=== PATIENT | female | born 1980 | race African-American/Black ===

== ENCOUNTER 2018-03-19 08:15 | Emergency (ER) | payer OTHER ==
[2018-03-19] MEDS ORDERED: DEXAMETHASONE 4 MG/ML VIAL ONE (09:04)
--- NOTE | 2018-03-19 09:23 | EDPHYS ---
Physician Documentation [facility] Name: Doretha Sandoval Age: 37 yrs Sex: Female : 1980 Arrival Date: 03/19/2018 Time: 08:17 Bed 13 Private MD: None, None ED Physician Mike Angel HPI: 03/19 08:51 This 37 yrs old Black Female presents to ER via Ambulatory with complaints of Sore rn Throat. 08:51 The patient presents with sore throat. The patient describes throat pain as burning, rn raw. Onset: The symptoms/episode began/occurred 3 day(s) ago. Severity of symptoms: At their worst the symptoms were moderate, in the emergency department the symptoms are unchanged. Associated signs and symptoms: Pertinent positives: flu-like symptoms, Sore throat. The patient has not experienced similar symptoms in the past. Reports sore throat for 3 days, no cough/congestion/runny nose, + muscle aches and fatigue.. 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 - Social history:: Smoking status: Patient/guardian denies using tobacco. - Ebola Screening: : Patient denies exposure to infectious person Patient denies travel to an Ebola-affected area in the 21 days before illness onset. - Family history:: not pertinent. - Hospitalizations: : No recent hospitalization is reported. ROS: 08:51 Constitutional: Negative for fever, chills, and weight loss, Eyes: Negative for injury, rn pain, redness, and discharge, ENT: + sore throat Neck: Negative for injury, pain, and swelling, Cardiovascular: Negative for chest pain, palpitations, and edema, Respiratory: Negative for shortness of breath, cough, wheezing, and pleuritic chest pain, Abdomen/GI: Negative for abdominal pain, nausea, vomiting, diarrhea, and constipation, MS/Extremity: Negative for injury and deformity, Skin: Negative for injury, rash, and discoloration, Neuro: Negative for headache, weakness, numbness, tingling, and seizure. Exam: 08:51 Constitutional: This is a well developed, well nourished patient who is awake, alert, rn and in no acute distress. Head/Face: Normocephalic, atraumatic. Eyes: Pupils equal round and reactive to light, extra-ocular motions intact. Lids and lashes normal. Conjunctiva and sclera are non-icteric and not injected. Cornea within normal limits. Periorbital areas with no swelling, redness, or edema. ENT: no stridor, + tonsillar hypertrophy with exudate and erythema, MMM Neck: + tender cervical LAD Neuro: Awake and alert, GCS 15, oriented to person, place, time, and situation. Cranial nerves II-XII grossly intact. Motor strength 5/5 in all extremities. Sensory grossly intact. Cerebellar exam normal. Normal gait. Vital Signs: 08:42 BP 107 / 79; Pulse 94; Resp 16; Temp 97.0(TE); Pulse Ox 99% on R/A; Weight 95.25 kg; ss Height 5 ft. 3 in. (160.02 cm); Pain 10/10; 09:40 BP 118 / 78; Pulse 75; Resp 17; Pulse Ox 100% on R/A; tw2 08:42 Body Mass Index 37.20 (95.25 kg, 160.02 cm) ss MDM: 08:37 Patient medically screened. rn 09:22 Differential diagnosis: group A strep tonsillitis. Data reviewed: vital signs, nurses rn notes, lab test result(s), and as a result, I will discharge patient. Counseling: I had a detailed discussion with the patient and/or guardian regarding: the historical points, exam findings, and any diagnostic results supporting the discharge/admit diagnosis, lab results, the need for outpatient follow up, to return to the emergency department if symptoms worsen or persist or if there are any questions or concerns that arise at home. Special discussion: I discussed with the patient/guardian in detail that at this point there is no indication for admission to the hospital. It is understood, however, that if the symptoms persist or worsen the patient needs to return immediately for re-evaluation. 03/19 08:45 Order name: Strep; Complete Time: 09:21 rn 03/19 08:45 Order name: Flu; Complete Time: 09:35 rn Administered Medications: 09:10 Drug: Decadron 10 mg Route: IM; Site: right deltoid; tw2 09:23 Follow up: Response: No adverse reaction hj 09:23 Drug: Bicillin L-A 1.2 million units Route: IM; Site: left deltoid; hj 09:29 Follow up: Response: No adverse reaction hj Disposition: 03/19/18 09:23 Discharged to Home. Impression: Streptococcal tonsillitis. - Condition is Stable. - Discharge Instructions: Strep Throat. - Medication Reconciliation Form, Thank You Letter, Antibiotic Education, Prescription Opioid Use form. - Follow up: Private Physician; When: As needed; Reason: Recheck today's complaints, Re-evaluation by your physician. - Problem is new. - Symptoms have improved. Signatures: Dispatcher [employer] EDMS iMke Angel MD MD rn Smirch, Shelby RN PEBBLES Jani Kerr RN RN Janice Adame RN RN tw2 Corrections: (The following items were deleted from the chart) 09:42 09:23 03/19/2018 09:23 Discharged to Home. Impression: Streptococcal tonsillitis. tw2 Condition is Stable. Forms are Medication Reconciliation Form, Thank You Letter, Antibiotic Education, Prescription Opioid Use. Follow up: Private Physician; When: As needed; Reason: Recheck today's complaints, Re-evaluation by your physician. Problem is new. Symptoms have improved. rn
--- NOTE | 2018-03-19 09:23 | ER ---
Nurse's Notes [facility] Name: Doretha Sandoval Age: 37 yrs Sex: Female : 1980 Arrival Date: 03/19/2018 Time: 08:17 Bed 13 Private MD: None, None Diagnosis: Streptococcal tonsillitis Presentation: 03/19 08:36 Presenting complaint: Patient states: sore throat that began 2 days ago. Transition of care: patient was not received from another setting of care. Onset of symptoms was March 17, 2018. Risk Assessment: Do you want to hurt yourself or someone else? Patient reports no desire to harm self or others. Initial Sepsis Screen: Does the patient meet any 2 criteria? No. Patient's initial sepsis screen is negative. Does the patient have a suspected source of infection? No. Patient's initial sepsis screen is negative. Care prior to arrival: None. 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 - Social history:: Smoking status: Patient/guardian denies using tobacco. - Ebola Screening: : Patient denies exposure to infectious person Patient denies travel to an Ebola-affected area in the 21 days before illness onset. - Family history:: not pertinent. - Hospitalizations: : No recent hospitalization is reported. Screenin:32 Abuse screen: Denies threats or abuse. Nutritional screening: No deficits noted. tw2 Tuberculosis screening: No symptoms or risk factors identified. Fall Risk None identified. Assessment: 09:00 General: Appears in no apparent distress. obese, Behavior is calm, cooperative, tw2 appropriate for age. Pain: Complains of pain in "throat". Neuro: Level of Consciousness is awake, alert, obeys commands, Oriented to person, place, time, situation. Cardiovascular: Denies chest pain, shortness of breath, Heart tones S1 S2 Patient's skin is warm and dry. Respiratory: Airway is patent Respiratory effort is even, unlabored, Respiratory pattern is regular, symmetrical, Breath sounds are clear bilaterally. GI: No signs and/or symptoms were reported involving the gastrointestinal system. : No signs and/or symptoms were reported regarding the genitourinary system. EENT: Throat is reddened. EENT: Reports pain when swallowing. Derm: No signs and/or symptoms reported regarding the dermatologic system. Musculoskeletal: Range of motion: intact in all extremities. 09:40 Reassessment: Patient appears in no apparent distress at this time. No changes from tw2 previously documented assessment. Patient and/or family updated on plan of care and expected duration. Pain level reassessed. Patient is alert, oriented x 3, equal unlabored respirations, skin warm/dry/pink. Vital Signs: 08:42 BP 107 / 79; Pulse 94; Resp 16; Temp 97.0(TE); Pulse Ox 99% on R/A; Weight 95.25 kg; ss Height 5 ft. 3 in. (160.02 cm); Pain 10/10; 09:40 BP 118 / 78; Pulse 75; Resp 17; Pulse Ox 100% on R/A; tw2 08:42 Body Mass Index 37.20 (95.25 kg, 160.02 cm) ED Course: 08:17 Patient arrived in ED. sb2 08:17 None, None is Private Physician. sb2 08:36 Bed in low position. Adult w/ patient. Pulse ox on. NIBP on. tw2 08:37 Mike Angel MD is Attending Physician. rn 08:37 Triage completed. 08:42 Arm band placed on right wrist. 08:56 Janice Adame, PEBBLES is Primary Nurse. tw2 09:07 Flu Sent. tw2 09:07 Strep Sent. tw2 09:31 Awaitin min observation PRIOR to discharge. tw2 09:42 No provider procedures requiring assistance completed. Patient did not have IV access tw2 during this emergency room visit. Administered Medications: 09:10 Drug: Decadron 10 mg Route: IM; Site: right deltoid; tw2 09:23 Follow up: Response: No adverse reaction 09:23 Drug: Bicillin L-A 1.2 million units Route: IM; Site: left deltoid; hj 09:29 Follow up: Response: No adverse reaction Outcome: 09:23 Discharge ordered by . rn 09:42 Discharged to home ambulatory, with family. tw2 09:42 Condition: stable 09:42 Discharge instructions given to patient, family, Instructed on discharge instructions, follow up and referral plans. Demonstrated understanding of instructions, follow-up care. 09:42 Patient left the ED. tw2 Signatures: Mike Angel MD MD rn Smirch, Shelby, RN RN ss Jani Kerr RN RN Janice Adame RN RN tw2 Carmencita Del Angel 2
[2018-03-19] MEDS ORDERED: PEN G BENZ LA 1.2MU/2ML SYRINGE IM ONE (09:31)
== END 2018-03-19 09:42 | disposition home or self-care (01) ==
LOC: ER 08:15
DX: J03.00 Acute streptococcal tonsillitis, unspecified (principal); Z91.02 Food additives allergy status
CPT/HCPCS: 87081; 87804 ×2; 96372; 99283; J0561

== ENCOUNTER 2018-08-09 16:24 | Emergency (ER) | payer OTHER ==
--- OUTSIDE RECORDS SUMMARY | 2018-08-09 16:25 | XMS REPORT ---
:1980 [facility] [address] [place] [address] Care Team Providers Name Role Phone Unavailable Unavailable Unavailable Problems This patient has no known problems. Allergies, Adverse Reactions, Alerts This patient has no known allergies or adverse reactions. Medications This patient has no known medications.
--- NOTE | 2018-08-09 17:38 | ER ---
Nurse's Notes [facility] Name: Doretha Sandoval Age: 38 yrs Sex: Female : 1980 Arrival Date: 08/09/2018 Time: 16:26 Bed 11 Private MD: None, None Diagnosis: Acute tonsillitis Presentation: 08/09 16:35 Presenting complaint: Patient states: "I think I have strep throat". Pt c/o sore aa5 throat. Transition of care: patient was not received from another setting of care. Onset of symptoms was July 2018. Risk Assessment: Do you want to hurt yourself or someone else? Patient reports no desire to harm self or others. Initial Sepsis Screen: Does the patient meet any 2 criteria? No. Patient's initial sepsis screen is negative. Does the patient have a suspected source of infection? No. Patient's initial sepsis screen is negative. Care prior to arrival: None. 16:35 Method Of Arrival: Ambulatory aa5 16:35 Acuity: EMILEE 4 aa5 Triage Assessment: 16:36 General: Appears comfortable, Behavior is calm, cooperative. Pain: Complains of pain in aa5 throat. EENT: Throat is reddened has enlarged tonsils bilaterally Denies nasal congestion. Neuro: Level of Consciousness is awake, alert, obeys commands, Oriented to person, place, time, situation. Cardiovascular: No deficits noted. Respiratory: Airway is patent Respiratory effort is even, unlabored, Respiratory pattern is regular, symmetrical, Denies cough. GI: No signs and/or symptoms were reported involving the gastrointestinal system. : No signs and/or symptoms were reported regarding the genitourinary system. Derm: Skin is dry, Skin is normal, Skin temperature is warm. Musculoskeletal: Range of motion: intact in all extremities. 17:15 EENT: Reports difficulty swallowing. iw 18:00 Pain: Complains of pain in throat. iw 18:05 General: Behavior is calm. iw 18:10 General: Appears in no apparent distress. 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 - Social history:: Smoking status: Patient uses tobacco products, denies chronic smoking, but will smoke occasionally. - Ebola Screening: : No symptoms or risks identified at this time. Screenin:00 Abuse screen: Denies threats or abuse. Denies injuries from another. Nutritional iw screening: No deficits noted. Tuberculosis screening: No symptoms or risk factors identified. Fall Risk None identified. Assessment: 16:36 Reassessment: See triage assessment . aa5 17:00 Respiratory: Airway is patent. iw 17:05 Respiratory: Respiratory effort is even, unlabored. iw 17:15 Respiratory: Breath sounds are clear. iw 17:55 EENT: Throat is reddened. iw 18:11 Neuro: Level of Consciousness is awake, alert, obeys commands, Oriented to person, aa5 place, time, situation. Respiratory: Airway is patent Respiratory effort is even, unlabored, Respiratory pattern is regular, symmetrical. Derm: Skin is dry, Skin is normal, Skin temperature is warm. Vital Signs: 16:36 BP 109 / 72; Pulse 82; Resp 16 S; Temp 97.6(TE); Pulse Ox 97% on R/A; Weight 98.88 kg aa5 (R); Height 5 ft. 3 in. (160.02 cm) (R); Pain 10/10; 16:36 Body Mass Index 38.62 (98.88 kg, 160.02 cm) aa5 ED Course: 16:26 Patient arrived in ED. mr 16:27 None, None is Private Physician. mr 16:36 Triage completed. aa5 16:52 Calli Greene, PEBBLES is Primary Nurse. aa5 17:01 Shaka Santana PA is PHCP. jr8 17:01 Maikel Palmer MD is Attending Physician. jr8 17:20 Patient has correct armband on for positive identification. iw 17:30 Strep swab sent to lab. jp3 17:30 Cardiac monitoring not applicable on this patient. jp3 17:30 Arm band placed on. iw 18:10 Throat Culture Sent. jp3 18:10 Patient did not have IV access during this emergency room visit. iw 18:12 No provider procedures requiring assistance completed. iw Administered Medications: 17:38 Drug: Decadron 10 mg Route: IM; Site: right gluteus; aa5 18:11 Follow up: Response: No adverse reaction aa5 17:40 Drug: Bicillin L-A 2.4 million units Route: IM; Site: left gluteus; aa5 18:11 Follow up: Response: No adverse reaction aa5 Outcome: 17:37 Discharge ordered by . jayden 18:11 Discharged to home ambulatory. iw 18:11 Condition: good 18:11 Discharge instructions given to patient, Instructed on discharge instructions, follow up and referral plans. Demonstrated understanding of instructions, follow-up care. 18:13 Patient left the ED. iw Signatures: Trinity Piña Irene RN RN iw Calli Greene RN RN aa5 Shaka Santana PA PA jr8 Adilson Mullins jp3
--- NOTE | 2018-08-09 17:38 | EDPHYS ---
Physician Documentation [facility] Name: Doretha Sandoval Age: 38 yrs Sex: Female : 1980 Arrival Date: 08/09/2018 Time: 16:26 Bed 11 Private MD: None, None ED Physician Maikel Palmer HPI: 08/09 17:21 This 38 yrs old Black Female presents to ER via Ambulatory with complaints of Sore jr8 Throat. 17:21 The patient presents with sore throat. The patient describes throat pain as raw. Onset: jr8 The symptoms/episode began/occurred acutely, yesterday. Severity of symptoms: in the emergency department the symptoms are unchanged, despite home interventions. Modifying factors: The symptoms are alleviated by nothing, the symptoms are aggravated by foods, swallowing, Patient's oral intake status: good Denies contact with similarly ill indivduals. 17:21 Associated signs and symptoms: The patient has no apparent associated signs or jr8 symptoms. The patient has experienced a previous episode, approximately 3 months ago, and the symptoms today are exactly the same. The patient has not recently seen a physician. Patient reports that she had strep pharyngitis in March and these symptoms feel similar. Reports throat pain aggravated by swallowing. Denies fever, SOB, vomiting, decreased PO intake. . 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 - Social history:: Smoking status: Patient uses tobacco products, denies chronic smoking, but will smoke occasionally. - Ebola Screening: : No symptoms or risks identified at this time. ROS: 17:27 Constitutional: Negative for fever, chills, and weight loss, Eyes: Negative for injury, jr8 pain, redness, and discharge, Neck: Negative for injury, pain, and swelling, Cardiovascular: Negative for chest pain, palpitations, and edema, Respiratory: Negative for shortness of breath, cough, wheezing, and pleuritic chest pain, Abdomen/GI: Negative for abdominal pain, nausea, vomiting, diarrhea, and constipation, Skin: Negative for injury, rash, and discoloration, Psych: Negative for depression, anxiety, suicide ideation, homicidal ideation, and hallucinations. 17:27 Constitutional: Negative for body aches, chills, fatigue, fever, malaise, poor PO intake, weight loss. 17:27 ENT: Positive for sore throat, Negative for ear pain, nasal discharge, rhinorrhea, sinus congestion, difficulty swallowing, difficulty handling secretions, hoarseness. 17:27 Neck: Negative for pain with movement, pain at rest, rash, stiffness, swollen nodes, tenderness. 17:27 Cardiovascular: Negative for chest pain. 17:27 Respiratory: Negative for cough, shortness of breath, wheezing. 17:27 Abdomen/GI: Negative for nausea, vomiting, and diarrhea. 17:27 Skin: Negative for rash. Exam: 17:28 Constitutional: This is a well developed, well nourished patient who is awake, alert, jr8 and in no acute distress. Head/Face: Normocephalic, atraumatic. Eyes: Pupils equal round and reactive to light, extra-ocular motions intact. Lids and lashes normal. Conjunctiva and sclera are non-icteric and not injected. Cornea within normal limits. Periorbital areas with no swelling, redness, or edema. Neck: Trachea midline, no thyromegaly or masses palpated, and no cervical lymphadenopathy. Supple, full range of motion without nuchal rigidity, or vertebral point tenderness. No Meningismus. Chest/axilla: Normal chest wall appearance and motion. Nontender with no deformity. No lesions are appreciated. Cardiovascular: Regular rate and rhythm with a normal S1 and S2. No gallops, murmurs, or rubs. Normal PMI, no JVD. No pulse deficits. Respiratory: Lungs have equal breath sounds bilaterally, clear to auscultation and percussion. No rales, rhonchi or wheezes noted. No increased work of breathing, no retractions or nasal flaring. Abdomen/GI: Soft, non-tender, with normal bowel sounds. No distension or tympany. No guarding or rebound. No evidence of tenderness throughout. Skin: Warm, dry with normal turgor. Normal color with no rashes, no lesions, and no evidence of cellulitis. Psych: Awake, alert, with orientation to person, place and time. Behavior, mood, and affect are within normal limits. 17:28 ENT: Posterior pharynx: Airway: normal, patent, Tonsils: enlarged on the right, enlarged on the left, with erythema, with exudate, Uvula: normal, midline, swelling, that is mild, erythema, that is moderate, peritonsillar mass, is not appreciated, pooling of secretions, is not appreciated. 17:28 Neck: External neck: is normal, Lymph nodes: no appreciated lymphadenopathy. Vital Signs: 16:36 BP 109 / 72; Pulse 82; Resp 16 S; Temp 97.6(TE); Pulse Ox 97% on R/A; Weight 98.88 kg aa5 (R); Height 5 ft. 3 in. (160.02 cm) (R); Pain 10/10; 16:36 Body Mass Index 38.62 (98.88 kg, 160.02 cm) aa5 MDM: 17:22 Patient medically screened. jr8 17:37 Data reviewed: vital signs, nurses notes, lab test result(s). Data interpreted: Pulse jr8 oximetry: on room air is 97 %. Interpretation: normal. Counseling: I had a detailed discussion with the patient and/or guardian regarding: the historical points, exam findings, and any diagnostic results supporting the discharge/admit diagnosis, lab results, the need for outpatient follow up, a family practitioner, to return to the emergency department if symptoms worsen or persist or if there are any questions or concerns that arise at home. 08/09 17:16 Order name: Strep; Complete Time: 06:06 [facility] 08/09 18:03 Order name: Throat Culture EDMS Administered Medications: 17:38 Drug: Decadron 10 mg Route: IM; Site: right gluteus; aa5 18:11 Follow up: Response: No adverse reaction aa5 17:40 Drug: Bicillin L-A 2.4 million units Route: IM; Site: left gluteus; aa5 18:11 Follow up: Response: No adverse reaction aa5 Disposition: 08/09/18 17:37 Discharged to Home. Impression: Acute tonsillitis. - Condition is Stable. - Discharge Instructions: Tonsillitis. - Medication Reconciliation Form, Thank You Letter, Antibiotic Education, Prescription Opioid Use form. - Follow up: Private Physician; When: 1 week; Reason: Recheck today's complaints, Continuance of care, Re-evaluation by your physician. - Problem is new. - Symptoms have improved. Signatures: Dispatcher [employer] Vianey Valdovinos RN RN Calli Arias RN RN aa5 Shaka Santana PA PA jr8 Corrections: (The following items were deleted from the chart) 17:27 17:21 Associated signs and symptoms: jr8 jr8 18:13 17:37 08/09/2018 17:37 Discharged to Home. Impression: Acute tonsillitis. Condition is iw Stable. Forms are Medication Reconciliation Form, Thank You Letter, Antibiotic Education, Prescription Opioid Use. Follow up: Private Physician; When: 1 week; Reason: Recheck today's complaints, Continuance of care, Re-evaluation by your physician. Problem is new. Symptoms have improved. jr8
[2018-08-09] MEDS ORDERED: PEN G BENZ LA 2.4 MU/4 ML SYRINGE IM ONE (17:45)
[2018-08-09] MEDS ORDERED: DEXAMETHASONE 4 MG/ML VIAL ONE (17:45)
== END 2018-08-09 18:13 | disposition home or self-care (01) ==
LOC: ER 16:24
DX: J03.90 Acute tonsillitis, unspecified (principal); Z72.0 Tobacco use; Z91.02 Food additives allergy status
CPT/HCPCS: 87070; 87081; 96372; 99283; J0561

== ENCOUNTER 2020-10-15 11:21 | Emergency (ER) | payer OTHER ==
--- OUTSIDE RECORDS SUMMARY | 2020-10-15 11:24 | XMS REPORT | Continuity of Care Document ---
:1980 Author Organization [facility] t Address [address] [place] [address] Care Team Providers Name Role Phone Nurse, [facility] Attending Clinician Unavailable Adolph ROA Attending Clinician Problems This patient has no known problems. Allergies, Adverse Reactions, Alerts This patient has no known allergies or adverse reactions. Medications This patient has no known medications. Procedures This patient has no known procedures. Encounters Start End Encounter Admission Attending Care Care Encounter Source Date/Time Date/Time Type Type Clinicians Facility Department ID 2020-10-13 2020-10-13 Nurse Nurse, [facility] [id number] 07:56:41 08:24:40 Visit Judy Davis [id number] [facility] [id number] Professio [id number] [address] 2020-07-20 2020-07-20 Office MELIZA Farfan [id number] 08:02:48 08:32:48 Visit Lucinda Ryan [id number] [facility] [id number] Professio [phone] nal [address] [facility] Results This patient has no known results.
[2020-10-15] MEDS ORDERED: NA CHLORIDE 0.9% 1,000 ML ONE ×2 (12:30→13:26)
[2020-10-15 13:16] LABS: Absolute Lymphocytes (CBC) 3.3 K/uL (0.7-4.9); Basophils % 0.1 % (0-1.3); Hematocrit 13.2 % (36.0-45.0); Lymphocytes % 14.1 % (15.3-44.8); MPV 8.6 fL (7.6-11.3); RBC Red Blood Cell Count 1.68 M/uL (3.86-4.86)
[2020-10-15 13:27] LABS: Protime INR 1.43
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
[2020-10-15 13:48] LABS: CKMB Creatine Kinase MB < 1.0 ng/mL (0.3-3.6); Creatine Phosphokinase 30 U/L (26-192); Lipase 68 U/L (73-393)
[2020-10-15 13:54] LABS: Blood Morphology Comment NOTED (NOT SEEN); Hypochromasia 1+; Platelet Estimate ADEQ; Platelets, Giant PRESENT
[2020-10-15] MEDS ORDERED: CEFEPIME/SWI 2gm 2 GM/20 ML SYR IVP ONE (14:00)
[2020-10-15] MEDS ORDERED: VANCOMYCIN/NS 1 gm 1 GM/250 ML BAG IVPB ONE (14:00)
[2020-10-15] MEDS ORDERED: LIDOCAINE 1% 20 ML MDV ONE (14:00)
[2020-10-15 14:04] LABS: ALT/SGPT 18 U/L (12-78); AST/SGOT 10 U/L (15-37); Albumin 2.4 g/dL (3.4-5.0); Alkaline Phosphatase 44 U/L (45-117); Amylase 48 U/L (25-115); BUN Blood Urea Nitrogen 32 mg/dL (7-18); Bicarbonate 20 mmol/L (21-32); Bilirubin Direct < 0.1 mg/dL (0-0.2); Bilirubin Total 0.2 mg/dL (0.2-1.0); Glucose Level 129 mg/dL (74-106); NT PRO-BNP 31 pg/mL (<125); Potassium 4.2 mmol/L (3.5-5.1); Protein, Total 5.6 g/dL (6.4-8.2); Sodium Level 145 mmol/L (136-145); Troponin (Emerg Dept Use Only) < 0.02 ng/mL (0.0-0.045)
[2020-10-15] MEDS ORDERED: NA CHLORIDE 0.9% 250 ML ONE ×3 (15:29→20:37)
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
[2020-10-15 17:13] LABS: Urine Blood Negative (Negative); Urine Glucose Negative (Negative); Urine Protein Negative (Negative); Urine Specific Gravity <=1.005 (1.005-1.030)
[2020-10-15] MEDS ORDERED: ACETAMINOPHEN 325 MG TABLET ONE (17:21)
[2020-10-15] MEDS ORDERED: PANTOPRAZOLE 40 MG INJ ONE (19:32)
--- NOTE | 2020-10-15 20:46 | ER ---
Nurse's Notes [facility] Name: Doretha Sandoval Age: 40 yrs Sex: Female : 1980 Arrival Date: 10/15/2020 Time: 11:23 Bed 15 Private MD: Diagnosis: Symptomatic Anemia;GI Bleed;Leukocytosis;Syncope and collapse Presentation: 10/15 11:25 Chief complaint: EMS states: Pt started feeling weak last night. Today has had several vg1 syncope episodes within the last couple of hours. Pt c/o blurry vision on scene, but has since subsided. Coronavirus screen: Client denies travel out of the [place] in the last 14 days. Ebola Screen: Patient negative for fever greater than or equal to 101.5 degrees Fahrenheit, and additional compatible Ebola Virus Disease symptoms. Initial Sepsis Screen: Does the patient meet any 2 criteria? No. Patient's initial sepsis screen is negative. Does the patient have a suspected source of infection? No. Patient's initial sepsis screen is negative. Risk Assessment: Do you want to hurt yourself or someone else? Patient reports no desire to harm self or others. Onset of symptoms was October 15, 2020. 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 - Social history:: Smoking status: Patient denies any tobacco usage or history of. Screenin:29 Abuse screen: Denies threats or abuse. Nutritional screening: No deficits noted. vg1 Tuberculosis screening: No symptoms or risk factors identified. Fall Risk No fall in past 12 months (0 pts). No secondary diagnosis (0 pts). IV access (20 points). Ambulatory Aid- None/Bed Rest/Nurse Assist (0 pts). Gait- Normal/Bed Rest/Wheelchair (0 pts) Mental Status- Oriented to own ability (0 pts). Total Jama Fall Scale indicates No Risk (0-24 pts). Assessment: 11:29 General: Appears in no apparent distress. comfortable, Behavior is calm, cooperative. vg1 Pain: Denies pain. Neuro: Level of Consciousness is awake, alert, obeys commands, Oriented to person, place, time, situation. Cardiovascular: Patient's skin is warm and dry. Respiratory: Airway is patent Respiratory effort is even, unlabored, Respiratory pattern is regular, symmetrical. GI: No signs and/or symptoms were reported involving the gastrointestinal system. GI: No signs and/or symptoms were reported involving the gastrointestinal system. : No signs and/or symptoms were reported regarding the genitourinary system. EENT: No signs and/or symptoms were reported regarding the EENT system. pt sclera appears to be white in color. Derm: Skin is intact, is healthy with good turgor. Musculoskeletal: Circulation, motion, and sensation intact. 12:30 Reassessment: No changes from previously documented assessment. Patient and/or family vg1 updated on plan of care and expected duration. Pain level reassessed. Patient is alert, oriented x 3, equal unlabored respirations, skin warm/dry/pink. 12:42 Reassessment: Dr. evans at bedside, pt states "i have been on a diet, i am not tw2 eating, gaston been taking those deepali apple cider vinegar pills and not really drinking". 13:21 Reassessment: Received call from Outside lab, Critical results, WBC 23.10 Hemoglobin vg1 3.9 Hematocrit 13.2 Provider notified. 13:25 Reassessment: Asked pt if has noticed in bleeding in stool, pt denied. Provider vg1 notified. 14:36 Reassessment: No changes from previously documented assessment. Patient and/or family vg1 updated on plan of care and expected duration. Pain level reassessed. Patient is alert, oriented x 3, equal unlabored respirations, skin warm/dry/pink. 17:00 Reassessment: Patient appears in no apparent distress at this time. Patient and/or vg1 family updated on plan of care and expected duration. Pain level reassessed. Patient is alert, oriented x 3, equal unlabored respirations, skin warm/dry/pink. 18:43 Reassessment: Patient appears in no apparent distress at this time. Patient and/or vg1 family updated on plan of care and expected duration. Pain level reassessed. Patient is alert, oriented x 3, equal unlabored respirations, skin warm/dry/pink. Blood transfusion began at 1820. Please refer to Transfusion Flow sheet for vitals. 19:39 Reassessment: Patient appears in no apparent distress at this time. Patient and/or vg1 family updated on plan of care and expected duration. Pain level reassessed. Patient is alert, oriented x 3, equal unlabored respirations, skin warm/dry/pink. 20:53 Reassessment: Patient appears in no apparent distress at this time. Patient and/or vg1 family updated on plan of care and expected duration. Pain level reassessed. Patient is alert, oriented x 3, equal unlabored respirations, skin warm/dry/pink. Second unit of blood began at 2034. Please refer to Transfusion flow sheet for vitals. 21:15 Reassessment: Pt has been told that she has been place on NPO, continues to ask for vg1 water or ice chips. Pt has been educated the reason for NPO. Pt stated 'well I will just get water from the sink when you are not in room.' Provider notified. Vital Signs: 11:25 BP 95 / 56; Pulse 109; Resp 20; Temp 98.7(O); Pulse Ox 100% on R/A; Weight 96.16 kg; vg1 Height 5 ft. 3 in. (160.02 cm); Pain 0/10; 12:00 BP 95 / 50; Pulse 101; Resp 18; Pulse Ox 100% on R/A; vg1 12:15 BP 74 / 27; Pulse 101; Resp 20; Pulse Ox 100% on R/A; vg1 12:30 BP 72 / 34; Pulse 97; Resp 22; Pulse Ox 100% on R/A; vg1 12:45 BP 83 / 31; Pulse 95; Resp 20; Pulse Ox 100% on R/A; vg1 13:00 BP 89 / 35; Pulse 103; Resp 16; Pulse Ox 100% on R/A; vg1 13:08 BP 96 / 38; Pulse 105; Resp 22; Pulse Ox 100% on R/A; vg1 13:30 BP 86 / 70; Pulse 115; Resp 24; Pulse Ox 97% on R/A; vg1 13:45 BP 101 / 54; Pulse 110; Resp 24; Pulse Ox 98% on R/A; vg1 14:30 BP 106 / 41; Pulse 113; Resp 20; Pulse Ox 100% on R/A; vg1 15:00 BP 110 / 55; Pulse 112; Resp 14; Pulse Ox 100% on R/A; vg1 15:30 BP 101 / 42; Pulse 107; Resp 16; Pulse Ox 100% on R/A; vg1 15:45 BP 109 / 53; Pulse 114; Resp 18; Pulse Ox 100% on R/A; vg1 16:00 BP 110 / 69; Pulse 114; Resp 22; Pulse Ox 100% on R/A; vg1 16:15 BP 107 / 59; Pulse 115; Resp 14; Pulse Ox 100% on R/A; vg1 16:45 BP 98 / 59; Pulse 115; Resp 24; Pulse Ox 100% on R/A; vg1 17:00 BP 108 / 55; Pulse 115; Resp 20; Temp 100.3(O); Pulse Ox 100% on R/A; vg1 17:15 BP 96 / 71; Pulse 115; Resp 24; Pulse Ox 100% on R/A; vg1 17:30 BP 92 / 57; Pulse 113; Resp 24; Pulse Ox 100% on R/A; vg1 11:25 Body Mass Index 37.55 (96.16 kg, 160.02 cm) 1 ED Course: 11:23 Patient arrived in ED. em 11:25 Coco Justin, RN is Primary Nurse. 1 11:27 Triage completed. vg1 11:30 Patient has correct armband on for positive identification. Bed in low position. Call [facility] light in reach. Side rails up X2. Adult w/ patient. 11:30 Arm band placed on. vg1 11:39 Ulysses Evans MD is Attending Physician. kdr 12:30 Initial lab(s) drawn, by ok, sent to lab. Inserted saline lock: 22 gauge in right [facility] antecubital area, using aseptic technique. Blood collected. 12:50 First set of blood cultures drawn by ok. 1 12:53 Radiology exam delayed due to PT IN [place] DUE TO LOW BP, PER COCO (RN) 1 CHECK BACK IN ABOUT 20 MIN. 13:10 Second set of blood cultures drawn by me. vg1 13:25 XRAY Chest (1 view) In Process Unspecified. EDMS 15:32 CT Chest, Abdomen, Pelvis - W/Contrast In Process Unspecified. EDMS 15:[address] stretcher. vg1 15:35 Alejo cath inserted, using sterile technique, 16 Fr., by me, balloon inflated. em 15:52 Repeat lab(s) drawn. by ok, sent to lab. vg1 17:39 Transfer center at [facility] contacted to initiate transfer; em1 transfer center will monitor [facility] bed situation and as soon as an appropriate bed becomes available they will contact us to do doc to doc. 19:45 Attending Physician role handed off by Ulysses Evans MD [facility] 19:45 Juve Maxwell MD is Attending Physician. [facility] 20:30 Primary Nurse role handed off by Coco Justin RN [facility] 20:32 doc to doc with the cop breaker from [facility]. [facility] 20:36 administrative approval given by Elizabeth Go/ patient has been accepted to [address] bed 1539/ dr. Moya accepted the patient in transfer/ report to be called to [phone]. 20:52 Coco Justin RN is Primary Nurse. [facility] 21:34 No provider procedures requiring assistance completed. Patient transferred, IV remains vg1 in place. Administered Medications: 12:29 Drug: NS 0.9% 1000 ml Route: IV; Rate: 1 bolus; Site: right antecubital; vg1 13:30 Follow up: IV Status: Completed infusion; IV Intake: 1000ml vg1 13:30 Drug: NS 0.9% (30 ml/kg) 30 ml/kg Route: IV; Rate: bolus; Site: right femoral; vg1 15:18 Follow up: IV Status: Completed infusion vg1 14:00 Drug: NS 0.9% 1000 ml Route: IV; Rate: 1 bolus; Site: right femoral; vg1 15:17 Follow up: IV Status: Completed infusion; IV Intake: 1000ml vg1 14:17 Drug: Cefepime 2 grams Route: IVPB; Rate: 200 ml/hr; Infused Over: 30 mins; Site: right vg1 femoral; 14:22 Follow up: IV Status: Completed infusion vg1 14:28 Drug: vancoMYCIN 1 grams Route: IVPB; Infused Over: 2 hrs; Site: right femoral; vg1 17:18 Follow up: IV Status: Completed infusion; IV Intake: 250ml vg1 19:25 Drug: ProTONIX (pantoprazole) 80 mg Route: IVP; Site: right femoral; vg1 21:35 Follow up: Response: No adverse reaction vg1 19:36 Drug: ProTONIX (pantoprazole) 8 mg/hr Route: IV; Rate: 25 ml/hr; Site: right femoral; vg1 22:33 Follow up: IV Status: Infusion continued upon transfer vg1 Intake: 13:30 IV: 1000ml; Total: 1000ml. vg1 15:17 IV: 1000ml; Total: 2000ml. vg1 17:18 IV: 250ml; Total: 2250ml. vg1 Outcome: 20:45 ER care complete, transfer ordered by . 7 21:34 Transferred by ground EMS to [facility]. vg1 21:34 Condition: improved 21:34 Instructed on the need for transfer. 22:33 Patient left the ED. vg1 Signatures: Dispatcher [employer] EDMS Ulysses Evans MD MD [facility] Elizabeth Shrestha 1 Marvel Price, RN Dale Mata emJessica Ramachandran RN RN ss Wise, Tara, RN RN 2 Jyoti Winslow 2 Coco Justin RN RN 1 Juve Maxwell MD MD [facility] Corrections: (The following items were deleted from the chart) 12:53 11:25 Acuity: EMILEE 3 vg1 ss 14:28 14:17 Cefepime 2 grams IVPB at 200 ml/hr in Other over 30 mins vg1 vg1 14:58 11:29 EENT: No signs and/or symptoms were reported regarding the EENT system. vg1 vg1 17:51 17:00 Temp 100.3F Oral; vg1 vg1 21:22 18:43 Reassessment: Patient appears in no apparent distress at this time. Patient vg1 and/or family updated on plan of care and expected duration. Pain level reassessed. Patient is alert, oriented x 3, equal unlabored respirations, skin warm/dry/pink. Blood transfusion began at 1820 vg1 21:22 20:53 Reassessment: Patient appears in no apparent distress at this time. Patient vg1 and/or family updated on plan of care and expected duration. Pain level reassessed. Patient is alert, oriented x 3, equal unlabored respirations, skin warm/dry/pink. Second unit of blood began at 2034 vg1
--- NOTE | 2020-10-15 20:46 | EDPHYS ---
Physician Documentation [facility] Name: Doretha Sandoval Age: 40 yrs Sex: Female : 1980 Arrival Date: 10/15/2020 Time: 11:23 Bed 15 Private MD: ED Physician Juve Maxwell HPI: 10/15 19:02 This 40 yrs old Black Female presents to ER via EMS with complaints of Syncope. kdr 19:02 The patient has experienced syncope, collapsed. Onset: The symptoms/episode kdr began/occurred suddenly, gradually, this morning. Duration: The patient has had multiple episodes, that last an unknown period of time. Context: occurred at home, occurred while the patient was at rest. Associated injury: The patient did not suffer any apparent associated injury. Associated signs and symptoms: Pertinent positives: weakness. 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 - Social history:: Smoking status: Patient denies any tobacco usage or history of. ROS: 19:29 Constitutional: Negative for fever, chills, and weight loss, Eyes: Negative for injury, kdr pain, redness, and discharge, ENT: Negative for injury, pain, and discharge, Neck: Negative for injury, pain, and swelling, Cardiovascular: Negative for chest pain, palpitations, and edema, Respiratory: Negative for shortness of breath, cough, wheezing, and pleuritic chest pain, Abdomen/GI: Negative for abdominal pain, nausea, vomiting, diarrhea, and constipation, Back: Negative for injury and pain, : Negative for injury, bleeding, discharge, and swelling, MS/Extremity: Negative for injury and deformity, Skin: Negative for injury, rash, and discoloration, Psych: Negative for depression, anxiety, suicide ideation, homicidal ideation, and hallucinations, Allergy/Immunology: Negative for hives, rash, and allergies, Endocrine: Negative for neck swelling, polydipsia, polyuria, polyphagia, and marked weight changes, Hematologic/Lymphatic: Negative for swollen nodes, abnormal bleeding, and unusual bruising. 19:29 Neuro: Positive for syncope, weakness, Negative for altered mental status, dizziness, gait disturbance, loss of consciousness, numbness, seizure activity, speech changes, tinnitus, tremor. Exam: 19:29 Abdomen/GI: Inspection: abdomen appears normal, Bowel sounds: active, Palpation: soft, kdr nontender, mass, is not appreciated, Rectal exam: Stool: guaiac positive, black. 19:29 Constitutional: This is a well developed, well nourished patient who is awake, alert, and in no acute distress. Head/Face: Normocephalic, atraumatic. Eyes: Pupils equal round and reactive to light, extra-ocular motions intact. Lids and lashes normal. Conjunctiva and sclera are non-icteric and not injected. Cornea within normal limits. Periorbital areas with no swelling, redness, or edema. Neck: Trachea midline, no thyromegaly or masses palpated, and no cervical lymphadenopathy. Supple, full range of motion without nuchal rigidity, or vertebral point tenderness. No Meningismus. Chest/axilla: Normal chest wall appearance and motion. Nontender with no deformity. No lesions are appreciated. Cardiovascular: Regular rate and rhythm with a normal S1 and S2. No gallops, murmurs, or rubs. Normal PMI, no JVD. No pulse deficits. Respiratory: Lungs have equal breath sounds bilaterally, clear to auscultation and percussion. No rales, rhonchi or wheezes noted. No increased work of breathing, no retractions or nasal flaring. Back: No spinal tenderness. No costovertebral tenderness. Full range of motion. Skin: Warm, dry with normal turgor. Normal color with no rashes, no lesions, and no evidence of cellulitis. MS/ Extremity: Pulses equal, no cyanosis. Neurovascular intact. Full, normal range of motion. Neuro: Awake and alert, GCS 15, oriented to person, place, time, and situation. Cranial nerves II-XII grossly intact. Motor strength 5/5 in all extremities. Sensory grossly intact. Cerebellar exam normal. Normal gait. Psych: Awake, alert, with orientation to person, place and time. Behavior, mood, and affect are within normal limits. Vital Signs: 11:25 BP 95 / 56; Pulse 109; Resp 20; Temp 98.7(O); Pulse Ox 100% on R/A; Weight 96.16 kg; vg1 Height 5 ft. 3 in. (160.02 cm); Pain 0/10; 12:00 BP 95 / 50; Pulse 101; Resp 18; Pulse Ox 100% on R/A; vg1 12:15 BP 74 / 27; Pulse 101; Resp 20; Pulse Ox 100% on R/A; vg1 12:30 BP 72 / 34; Pulse 97; Resp 22; Pulse Ox 100% on R/A; vg1 12:45 BP 83 / 31; Pulse 95; Resp 20; Pulse Ox 100% on R/A; vg1 13:00 BP 89 / 35; Pulse 103; Resp 16; Pulse Ox 100% on R/A; vg1 13:08 BP 96 / 38; Pulse 105; Resp 22; Pulse Ox 100% on R/A; vg1 13:30 BP 86 / 70; Pulse 115; Resp 24; Pulse Ox 97% on R/A; vg1 13:45 BP 101 / 54; Pulse 110; Resp 24; Pulse Ox 98% on R/A; vg1 14:30 BP 106 / 41; Pulse 113; Resp 20; Pulse Ox 100% on R/A; vg1 15:00 BP 110 / 55; Pulse 112; Resp 14; Pulse Ox 100% on R/A; vg1 15:30 BP 101 / 42; Pulse 107; Resp 16; Pulse Ox 100% on R/A; vg1 15:45 BP 109 / 53; Pulse 114; Resp 18; Pulse Ox 100% on R/A; vg1 16:00 BP 110 / 69; Pulse 114; Resp 22; Pulse Ox 100% on R/A; vg1 16:15 BP 107 / 59; Pulse 115; Resp 14; Pulse Ox 100% on R/A; vg1 16:45 BP 98 / 59; Pulse 115; Resp 24; Pulse Ox 100% on R/A; vg1 17:00 BP 108 / 55; Pulse 115; Resp 20; Temp 100.3(O); Pulse Ox 100% on R/A; vg1 17:15 BP 96 / 71; Pulse 115; Resp 24; Pulse Ox 100% on R/A; vg1 17:30 BP 92 / 57; Pulse 113; Resp 24; Pulse Ox 100% on R/A; vg1 11:25 Body Mass Index 37.55 (96.16 kg, 160.02 cm) vg1 Procedures: 14:14 Central Line: the site was prepped with Betadine, in sterile fashion, a triple lumen cp catheter was inserted, in the right femoral vein, in 1 attempts. placement was verified, by blood return, the site was dressed with using sterile technique, the patient tolerated the procedure, well. MDM: 19:09 ED course: attempted transfer to [facility], all [facility] on diversion for critical care la1 patients. . 19:29 Data reviewed: vital signs, nurses notes, lab test result(s), radiologic studies. kdr Counseling: I had a detailed discussion with the patient and/or guardian regarding: the historical points, exam findings, and any diagnostic results supporting the discharge/admit diagnosis, lab results, radiology results. 20:43 Differential Diagnosis: cardiac arrhythmia, GI bleed, idiopathic syncope, seizure, mh7 vasovagal episode. Data interpreted: Pulse oximetry: on room air is 100 %. Interpretation: normal. Response to treatment: the patient's symptoms have mildly improved after treatment. 20:45 Patient medically screened. mh7 20:45 Counseling: I had a detailed discussion with the patient and/or guardian regarding: the 7 need to transfer to another facility, for higher level of care, [facility] does not immediately have the required specialist. 10/15 12:13 Order name: Basic Metabolic Panel; Complete Time: 14:55 [facility] 10/15 12:13 Order name: CBC with Diff; Complete Time: 14:55 [facility] 10/15 12:13 Order name: LFT's; Complete Time: 14:55 [facility] 10/15 12:13 Order name: Magnesium; Complete Time: 14:55 [facility] 10/15 12:13 Order name: NT PRO-BNP; Complete Time: 14:55 [facility] 10/15 12:13 Order name: PT-INR; Complete Time: 14:55 [facility] 10/15 12:13 Order name: Troponin (emerg Dept Use Only); Complete Time: 14:55 [facility] 10/15 12:46 Order name: Amylase, Serum; Complete Time: 14:55 [facility] 10/15 12:46 Order name: Blood Culture Adult (2) [facility] 10/15 12:46 Order name: Ckmb; Complete Time: 14:55 [facility] 10/15 12:46 Order name: CPK; Complete Time: 14:55 [facility] 10/15 12:46 Order name: Lactate; Complete Time: 14:55 [facility] 10/15 12:46 Order name: Lipase; Complete Time: 14:55 [facility] 10/15 12:46 Order name: Procalcitonin; Complete Time: 14:55 [facility] 10/15 13:15 Order name: PTT, Activated Partial Thromb; Complete Time: 14:55 [facility] 10/15 13:21 Order name: Manual Differential; Complete Time: 14:55 [facility] 10/15 14:46 Order name: TS em1 10/15 16:03 Order name: SARS-COV-2 RT PCR; Complete Time: 16:12 [facility] 10/15 16:17 Order name: Lactate Sepsis 2 HR Follow-up; Complete Time: 16:19 [facility] 10/15 17:12 Order name: Urine Dipstick-Ancillary; Complete Time: 19:46 [facility] 10/15 17:37 Order name: ABO/RH no charge; Complete Time: 19:46 [facility] 10/15 17:50 Order name: Packed RBC Leukored [facility] 10/15 19:25 Order name: PRBC [facility] 10/15 12:13 Order name: XRAY Chest (1 view); Complete Time: 14:55 [facility] 10/15 12:13 Order name: EKG; Complete Time: 12:14 [facility] 10/15 12:13 Order name: Cardiac monitoring; Complete Time: 12:32 [facility] 10/15 12:13 Order name: EKG - Nurse/Tech; Complete Time: 13:14 [facility] 10/15 12:13 Order name: IV Saline Lock; Complete Time: 12:29 [facility] 10/15 12:13 Order name: Labs collected and sent; Complete Time: 12:29 [facility] 10/15 12:13 Order name: O2 Per Protocol; Complete Time: 12:29 [facility] 10/15 12:13 Order name: O2 Sat Monitoring; Complete Time: 12:29 [facility] 10/15 12:46 Order name: Accucheck; Complete Time: 13:48 [facility] 10/15 12:46 Order name: IV Saline Lock - Large Bore; Complete Time: 13:48 [facility] 10/15 12:46 Order name: Urine Dipstick-Ancillary (obtain specimen); Complete Time: 18:00 [facility] 10/15 12:48 Order name: CT Chest, Abdomen, Pelvis - W/Contrast; Complete Time: 16:12 kdr 10/15 19:44 Order name: Packed RBCs (Additional Unit) EDMS Administered Medications: 12:29 Drug: NS 0.9% 1000 ml Route: IV; Rate: 1 bolus; Site: right antecubital; vg1 13:30 Follow up: IV Status: Completed infusion; IV Intake: 1000ml vg1 13:30 Drug: NS 0.9% (30 ml/kg) 30 ml/kg Route: IV; Rate: bolus; Site: right femoral; vg1 15:18 Follow up: IV Status: Completed infusion vg1 14:00 Drug: NS 0.9% 1000 ml Route: IV; Rate: 1 bolus; Site: right femoral; vg1 15:17 Follow up: IV Status: Completed infusion; IV Intake: 1000ml vg1 14:17 Drug: Cefepime 2 grams Route: IVPB; Rate: 200 ml/hr; Infused Over: 30 mins; Site: right vg1 femoral; 14:22 Follow up: IV Status: Completed infusion vg1 14:28 Drug: vancoMYCIN 1 grams Route: IVPB; Infused Over: 2 hrs; Site: right femoral; vg1 17:18 Follow up: IV Status: Completed infusion; IV Intake: 250ml vg1 19:25 Drug: ProTONIX (pantoprazole) 80 mg Route: IVP; Site: right femoral; vg1 21:35 Follow up: Response: No adverse reaction vg1 19:36 Drug: ProTONIX (pantoprazole) 8 mg/hr Route: IV; Rate: 25 ml/hr; Site: right femoral; vg1 22:33 Follow up: IV Status: Infusion continued upon transfer vg1 Disposition: 10/16 06:37 Co-signature as Attending Physician, Juve Maxwell MD. mh7 Disposition: 10/15/20 20:45 Transfer ordered to [facility]. Diagnosis are Symptomatic Anemia, GI Bleed, Leukocytosis, Syncope and collapse. - Reason for transfer: Higher level of care. - Accepting physician is Dr. Valentino. - Condition is Fair. - Problem is new. - Symptoms have improved. Signatures: Dispatcher [employer] EDMS Ulysses Orellana MD MD kdr Attema, Lee, ACID CLEANER-C ACID CLEANER-Cla1 Wilfrido Persaud PA PA cp Garcia, Victoria, RN RN vg1 Juve Maxwell MD MD mh7 Corrections: (The following items were deleted from the chart) 10/15 13:15 12:47 PTT, ACTIVATED+COAG.LAB.BRZ ordered. EDMS EDMS 15:21 13:47 CORONAVIRUS+MR.LAB.BRZ ordered. EDMS EDMS 19:43 19:25 Packed RBC Leukored ordered. EDMS EDMS 19:43 19:25 ABO/RH typing ordered. EDMS EDMS 19:43 19:26 Antibody Screen ordered. EDMS EDMS 19:43 19:35 Packed RBCs (Additional Unit) ordered. EDMS EDMS 22:33 20:45 10/15/2020 20:45 Transfer ordered to [facility]. vg1 Diagnosis is Symptomatic Anemia; GI Bleed; Leukocytosis; Syncope and collapse. Reason for transfer: Higher level of care. Accepting physician is Dr. Valentino. Condition is Fair. Problem is new. Symptoms have improved. mh7
[2020-10-15 23:01] VITALS: O2SAT 100
[2020-10-15 23:12] VITALS: TEMP 100.3
[2020-10-15 23:15] VITALS: BP 92/57
--- NOTE | 2020-10-17 07:28 | EKG ---
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
== END 2020-10-15 22:33 | disposition short-term general hospital (02) ==
LOC: ER 11:21
PROC: 30230N1 Transfusion of Nonautologous Red Blood Cells into Peripheral Vein, Open Approach (ICD-10-PCS; principal; 2020-10-15)
PROC: 06HM33Z Insertion of Infusion Device into Right Femoral Vein, Percutaneous Approach (ICD-10-PCS; 2020-10-15)
DX: D64.9 Anemia, unspecified (principal); K92.2 Gastrointestinal hemorrhage, unspecified; D72.829 Elevated white blood cell count, unspecified; Z20.822 Contact with and (suspected) exposure to COVID-19; Z91.02 Food additives allergy status
CPT/HCPCS: 96365; 96367; 96361; 93005; 87040 ×2; 85025; 80048; 36415; 82150; 86900; 83735; 86850; 82550; 87205 ×2; 85610; 86901; 80076; 83605 ×2; 85730; 81003; 84484; 82553; 83690; 84145; 83880; 71260; 74177; 71045; 51702; 96375; 99291; 99292; 96366; 36430; 36556; U0003; Q9967; C9113; J3370; J0692; P9016 ×2; J7050 ×3; J7030 ×2

== ENCOUNTER 2024-09-25 12:11 | Emergency (ER) | payer OTHER ==
--- NOTE | 2024-09-25 13:10 | ER ---
Nurse's Notes [facility] Name: Doretha Sandoval Age: 44 yrs Sex: Female : 1980 Arrival Date: 09/25/2024 Time: 12:11 Bed 6 Private MD: Diagnosis: Muscle spasm Presentation: 09/25 12:18 Chief complaint: EMS states: CALLED TO PATIENTS HOME FOR 1 EPISODE OF VOMITING, CHILLS, cm10 AND MUSCLE SPASMS. PT STATES THAT THIS STARTED AFTER TAKING NALTREXONE, BUPROPION, TRAMADOL ONCE. PT COMPLAINING OF MUSCLE SPASMS TO HER BILATERAL LEGS. Coronavirus screen: Client denies travel out of the [place] in the last 14 days. Ebola Screen: Patient denies travel to an Ebola-affected area in the 21 days before illness onset. Initial Sepsis Screen: Does the patient meet any 2 criteria? No. Patient's initial sepsis screen is negative. Does the patient have a suspected source of infection? No. Patient's initial sepsis screen is negative. Risk Assessment: Do you want to hurt yourself or someone else? Patient reports no desire to harm self or others. 12:18 Method Of Arrival: EMS: [facility] cm10 12:18 Acuity: EMILEE 3 cm10 12:20 Onset of symptoms was September 25, 2024. cm10 Triage Assessment: 12:20 General: Appears in no apparent distress. uncomfortable, Behavior is calm, cooperative. cm10 Pain: Complains of pain in right leg and left leg Pain currently is 10 out of 10 on a pain scale. Quality of pain is described as spasms. Neuro: No deficits noted. Level of Consciousness is awake, alert, obeys commands, Oriented to person, place, time, situation, Appropriate for age. Respiratory: No deficits noted. Airway is patent Respiratory effort is even, unlabored, Respiratory pattern is regular, symmetrical. Musculoskeletal: Reports pain in right leg and left leg. ALIGNER: 13:33 unknown cm10 Historical: - Allergies: 12:19 Red Dye; cm10 - Home Meds: 12:19 Bupropion Oral [Active]; Tramadol Oral [Active]; naltrexone oral [Active]; cm10 - PMHx: 12:19 Anemia; cm10 - Immunization history:: Adult Immunizations unknown. - Infectious Disease History:: Denies. - Social history:: Smoking status: Patient denies any tobacco usage or history of. Patient/guardian denies using alcohol, street drugs. Screenin:20 [facility] ED Fall Risk Assessment (Adult) History of falling in the last 3 months, cm10 including since admission No falls in past 3 months (0 pts) Confusion or Disorientation No (0 pts) Intoxicated or Sedated No (0 pts) Impaired Gait No (0 pts) Mobility Assist Device Used No (0 pt) Altered Elimination No (0 pt) Score/Fall Risk Level 0 - 2 = Low Risk Oriented to surroundings, Maintained a safe environment, Hourly rounding (assess needs \T\ fall precautionary measures) done. Abuse screen: Denies threats or abuse. Denies injuries from another. Nutritional screening: No deficits noted. Tuberculosis screening: No symptoms or risk factors identified. Assessment: 13:20 Reassessment: Patient appears in no apparent distress at this time. Patient and/or cm10 family updated on plan of care and expected duration. Pain level reassessed. Patient is alert, oriented x 3, equal unlabored respirations, skin warm/dry/pink. Vital Signs: 12:18 BP 126 / 73; Pulse 79; Resp 15; Temp 98.6; Pulse Ox 100% on R/A; Weight 92.08 kg; cm10 Height 5 ft. 3 in. ; Pain 10/10; 13:33 BP 149 / 92; Pulse 66; Resp 15; Pulse Ox 100% on R/A; cm10 12:18 Body Mass Index 35.96 (92.08 kg, 160.02 cm) cm10 12:18 Pain Scale: Adult cm10 ED Course: 12:17 Patient arrived in ED. db 12:18 Park Hernandez MD is Attending Physician. gb1 12:18 Stella Izquierdo, PEBBLES is Primary Nurse. cm10 12:19 Triage completed. cm10 12:20 Patient has correct armband on for positive identification. Bed in low position. Call cm10 light in reach. Pulse ox on. NIBP on. 12:21 Arm band placed on right wrist. Patient placed in an exam room, on a stretcher. cm10 13:34 Provided Education on: Follow-up instructions. cm10 13:34 No provider procedures requiring assistance completed. Patient did not have IV access cm10 during this emergency room visit. Administered Medications: No medications were administered Medication: 12:20 VIS not applicable for this client. cm10 Outcome: 13:09 Discharge ordered by . jonh 13:35 Discharged to home via wheelchair, 10 13:35 Condition: good 13:35 Discharge instructions given to patient, Instructed on discharge instructions, follow up and referral plans. Demonstrated understanding of instructions, follow-up care, 13:36 Patient left the ED. cm10 Signatures: Cheri Murillo RN RN db Martinez, Clarissa, RN RN 10 Park Hernandez MD MD gb1
--- NOTE | 2024-09-25 13:37 | EDPHYS ---
Physician Documentation [facility] Name: Doretha Sandoval Age: 44 yrs Sex: Female : 1980 Arrival Date: 09/25/2024 Time: 12:11 Bed 6 Private MD: ED Physician Park Hernandez HPI: 09/25 13:11 This 44 yrs old Black Female presents to ER via EMS with complaints of MUSCLE SPASMS. gb1 13:11 44-year-old -[place] female took bupropion and naltrexone for weight loss just gb1 1 dose today. She started feeling hot in her arms and legs and that her muscles were out of control. Does have muscle spasms on the right lower extremity due to a remote injury that resulted in the femur shantal.. 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 - Infectious Disease History:: Denies. - Social history:: Smoking status: Patient denies any tobacco usage or history of. Patient/guardian denies using alcohol, street drugs. Exam: 13:11 Constitutional: This is a well developed, well nourished patient who is awake, alert, gb1 and in no acute distress. Head/Face: Normocephalic, atraumatic. Eyes: Pupils equal round and reactive to light, extra-ocular motions intact. Lids and lashes normal. Conjunctiva and sclera are non-icteric and not injected. Cornea within normal limits. Periorbital areas with no swelling, redness, or edema. ENT: Nares patent. No nasal discharge, no septal abnormalities noted. Tympanic membranes are normal and external auditory canals are clear. Oropharynx with no redness, swelling, or masses, exudates, or evidence of obstruction, uvula midline. Mucous membranes moist. Neck: Trachea midline, no thyromegaly or masses palpated, and no cervical lymphadenopathy. Supple, full range of motion without nuchal rigidity, or vertebral point tenderness. No Meningismus. Chest/axilla: Normal chest wall appearance and motion. Nontender with no deformity. No lesions are appreciated. Cardiovascular: Regular rate and rhythm with a normal S1 and S2. No gallops, murmurs, or rubs. Normal PMI, no JVD. No pulse deficits. Respiratory: Lungs have equal breath sounds bilaterally, clear to auscultation and percussion. No rales, rhonchi or wheezes noted. No increased work of breathing, no retractions or nasal flaring. Abdomen/GI: Soft, non-tender, with normal bowel sounds. No distension or tympany. No guarding or rebound. No evidence of tenderness throughout. Back: No spinal tenderness. No costovertebral tenderness. Full range of motion. Skin: Warm, dry with normal turgor. Normal color with no rashes, no lesions, and no evidence of cellulitis. MS/ Extremity: Pulses equal, no cyanosis. Neurovascular intact. Full, normal range of motion. Neuro: Awake and alert, GCS 15, oriented to person, place, time, and situation. Cranial nerves II-XII grossly intact. Motor strength 5/5 in all extremities. Sensory grossly intact. Cerebellar exam normal. Normal gait. Vital Signs: 12:18 BP 126 / 73; Pulse 79; Resp 15; Temp 98.6; Pulse Ox 100% on R/A; Weight 92.08 kg; cm10 Height 5 ft. 3 in. ; Pain 10/10; 13:33 BP 149 / 92; Pulse 66; Resp 15; Pulse Ox 100% on R/A; cm10 12:18 Body Mass Index 35.96 (92.08 kg, 160.02 cm) cm10 12:18 Pain Scale: Adult cm10 MDM: 12:28 Medical Screening Exam initiated gb1 13:11 ED course: 44-year-old female with nonspecific muscle spasms of the upper and lower gb1 extremities. No focal findings on neurological exam. This is most likely an adverse drug reaction due to ingestion of bupropion and naltrexone for weight loss. I recommend the patient discharge discontinue these medications and add them to her drug added allergy list. Patient is compliant with his plan of care for discharge and is otherwise hemodynamically stable.. Administered Medications: No medications were administered Disposition Summary: 09/25/24 13:09 Discharge Ordered Notes: Location: Home gb1 Problem: new gb1 Symptoms: have improved gb1 Condition: Stable gb1 Diagnosis - Muscle spasm gb1 Followup: gb1 - With: Private Physician - When: - Reason: If symptoms return, Continuance of care Discharge Instructions: - Discharge Summary Sheet gb1 - Muscle Cramps and Spasms gb1 Forms: - Medication Reconciliation Form gb1 - Antibiotic Education gb1 - Prescription Opioid Use gb1 - Patient Portal Instructions gb1 - Leadership Thank You Letter gb1 Signatures: Stella Izquierdo RN RN cm10 Park Hernandez MD MD gb1
[2024-09-25 13:45] VITALS: TEMP 98.6; O2SAT 100
[2024-09-25 13:47] VITALS: BP 149/92
== END 2024-09-25 13:36 | disposition home or self-care (01) ==
LOC: ER 12:11
DX: M62.838 Other muscle spasm (principal); Z91.02 Food additives allergy status
CPT/HCPCS: 99283